=== PATIENT | female | born 1980 | race Caucasian/White ===

== ENCOUNTER 2022-09-17 16:14 | Emergency (ER) | payer OTHER, SELFPAY ==
[2022-09-17 16:15] VITALS: BP 116/88; PULSE 91; RESP 16; TEMP 36.9; O2SAT 97
--- NOTE | 2022-09-17 16:23 | ED.GENADULT ---
HPI - General Adult General Chief complaint: Abdominal Pain Stated complaint: abd pain Time Seen by Provider: 09/17/22 16:22 Source: patient Mode of arrival: ambulatory Limitations: no limitations History of Present Illness HPI narrative: 42-year-old white female who has had low dual back pain for the past week radiating down her right leg and around her sides worse when she bends over or moves or twists 07/15. She has taken ibuprofen 2 tablets 2 or 3 times a day with not a lot of relief. She is seen in the clinic and had some lower abdominal squeezing and was sent for CT scan at the hospital which showed possible thickening the small bowel wall suggest any inflammation or infection and no other abnormalities. Her urinalysis CBC and chemistry tests were unremarkable. She was discharged with Cipro to take twice a day for 7 days for possible intestinal infection. She also had some paresthesias of her lower abdomen and thighs without any rash for the past few days. She says it feels like a sunburn but there is no sunburn there. He has had no nausea vomiting or diarrhea or change in her bowel habits no fever cough runny nose sore throat problems walking talking seeing or hearing rash or itching bleeding or bruising swelling lumps or bumps. Ten days ago she had a small spot on her right leg that burned and then it was gone. She has no history of previous low back pain or no injury she knows of. She has not had any numbness or tingling weakness loss of bowel or bladder function. Denies any other complaints. 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 White patient no apparent distress.? Head normocephalic, atraumatic.? Eyes conjunctiva pink sclera nonicteric.? Extraocular movements are intact.? Ears externally normal.? Oropharynx is clear with moist mucous membranes without exudates.? Neck is supple nontender no lymphadenopathy.? Back: Mild low back paralumbar tenderness.? Patient has little discomfort when she moves around and tries to sit up exam table. Negative straight leg raise bilaterally Lungs are clear.? Heart is regular rate and rhythm without murmurs gallops or rubs.? Chest wall is nontender.? Abdomen is soft and nontender no hepatosplenomegaly or masses no CVA tenderness no abdominal bruits.? Extremities no cyanosis clubbing or edema.? Skin is warm and dry without rashes or lesions.? when I run my him lightly over lower abdomen she says it feels funny does not feel normal and there is no rash or irregularity in skin temperature or other abnormality Neurological patient is alert and oriented x4. deep tendon reflexes are +2 for lower extremities And sensations normal in her lower extremities.? Motor and sensory grossly intact.? Gait is normal. Medical Decision Making MDM Narrative Medical decision making narrative: Patient is placed in room 3 history and physicals was obtained from her ED visit [address] scan results were obtained. this thorough workup was reviewed with the patient in detail. CT scan only showed mild thickening or small bowel area suggesting possible inflammation her enteritis and no other abnormalities were seen. Her urinalysis and other labs were normal. Independent Historian: ? patient Differential Dx includes but not limited to: enteritis colitis urinary tract infection musculoskeletal pain Medications: Meds reviewed ? Medications daina
--- NOTE | 2022-09-17 16:40 | PC.NURSE ---
[facility] contacted and request made for pt er records from 09/15/22. [facility]
[2022-09-17 17:43] VITALS: TEMP 36.6
[2022-09-17 17:45] VITALS: BP 116/89; PULSE 85; RESP 14; O2SAT 97
== END 2022-09-17 17:48 | disposition home or self-care (01) ==
PROVIDERS: Emergency Provider Emergency Medicine
DX: R20.2 Paresthesia of skin (principal); S39.012A Strain of muscle, fascia and tendon of lower back, initial encounter; Z79.1 Long term (current) use of non-steroidal anti-inflammatories (NSAID); Z79.2 Long term (current) use of antibiotics; X58.XXXA Exposure to other specified factors, initial encounter
CPT/HCPCS: 99281

== ENCOUNTER 2023-03-01 12:16 | Outpatient (CLI) | payer OTHER, SELFPAY ==
[2023-03-01 13:03] LABS: Hematocrit 41.8 % (37.0-47.0); Mean Corpuscular HGB Conc 33.5 g/dl (32-36); Mean Corpuscular Hemoglobin 30.8 pg (26-34); Mean Corpuscular Volume 92.1 fl (80-100); Mean Platelet Volume 10.6 fl (7.4-10.4); Platelet Count Result 216 k/mm3 (150-375); Red Blood Count 4.54 M/mm3 (4.2-5.4); Red Cell Distribution Width 12.8 % (11.5-14.5); White Blood Count 4.8 K/mm3 (4.5-10.0)
== END 2023-03-01 12:17 | disposition home or self-care (01) ==
PROVIDERS: Visit Provider Student in an Organized Health Care Education/Training Program
DX: D25.9 Leiomyoma of uterus, unspecified (principal)
CPT/HCPCS: 36415; 85027; 86850; 86900; 86901

== ENCOUNTER 2023-03-08 01:19 | Day surgery (SDC) | payer OTHER, SELFPAY ==
[2023-02-26 09:11] VITALS: BMI 31.9
--- NOTE | 2023-02-26 09:15 | PC.NURSE ---
Report to the Outpatient Waiting Room, entrance under the green pavilion located off [facility], at time 10:00 on date 03/08/23. Planned Procedure Time: 12:00. Time changes happen often and if your time is changed the preop area will call you the afternoon before. - You and your visitor will be asked to self-screen and do not enter if you have any COVID symptoms. - A mask is optional within the hospital at this time. Patients may have clear liquids (water, carbonated beverages, clear teas, apple juice) until 3 hours prior to surgery (9:00) with a maximum of 20 ounces. - No food from midnight until time of surgery Take the following medications with a SIP of water the morning of surgery: SERTRALINE DO NOT STOP ANY OF YOUR OTHER PRESCRIPTION MEDICATIONS PRIOR TO SURGERY ?EXCEPT THE FOLLOWING Medications to discontinue per physician: N/A Date to take last dose: N/A Please no make-up, nail greenlandic, hairspray, perfume, deodorant, or body powder the day of surgery. No jewelry (including any body piercings) or valuables the day of surgery, leave them at home. Please take a shower or bath the night before, or the morning of, surgery with an antibacterial soap. Wear comfortable, loose fitting clothing. - Jewelry must be removed prior to entering the operating room. Rings and piercings that are not removed may be cut off. - The hospital will not accept responsibility for valuables. - Please leave all valuables, including medications, at home the day of surgery. If you are going home after surgery, a licensed cdl b driver must drive you home. - NO public transportation without another adult if you receive anesthesia. - We recommend that an adult stay with you for 24 hours following discharge. - We also recommend that you do not drive, make important decision, drink alcoholic beverages, or take any drugs that were not prescribed by your health care provider for at least 24 hours after your discharge time. Follow any additional instructions given to you from your surgeon. If you or anyone in your household have experienced Covid symptoms in the past week, please notify your surgeon or the nurse liaison at the phone number below for possible testing. Telephone instructions given to PT - SHEILA ESTRADA and asked if any additional questions and then verbalized understanding. Patient advised to call surgeon office or pre surgery nurse liaison [phone] if any additional questions.
--- NOTE | 2023-03-07 13:49 | PM.IMHP ---
H&P: HPI History of Present Illness Date/Time: 03/07/23 13:49 Chief Complaint: uterine fibroid abnormal uterine bleeding pelvic pain Narrative: ?42-year-old female who presents for hysterectomy for pelvic pain, AUB, uterine fibroid.? Patient reports a long history of pelvic pain.? Patient states she has seen several gynecologists regarding her pain.? Patient had CT scan done in September.? Patient has been treated for suspected gastritis without improvement symptoms.? Patient has tried hormonal contraception and currently has Nexplanon in place.? Patient continues to have bothersome pelvic pain and breakthrough bleeding.? CT scan and follow-up pelvic ultrasound showed uterine fibroid.? Patient is requesting surgical management via hysterectomy. Review of Systems Cardiovascular: Cardiovascular: Denies chest pain, Denies leg edema, Denies palpitations, Denies dyspnea and Denies dyspnea on exertion Respiratory: Respiratory: Denies cough, Denies dyspnea and Denies dyspnea on exertion Gastrointestinal: Gastrointestinal: Denies abdominal pain, Denies constipation, Denies diarrhea, Denies nausea and Denies vomiting Genitourinary: Genitourinary: Denies hematuria, Denies urinary frequency, Denies dysuria, Denies pelvic pain, Denies urinary incontinence and Denies vaginal discharge Neurologic: Reports system reviewed and no additional complaints, except as documented Psychiatric: Psychiatric: Reports no additional psychiatric complaints Endocrine: Endocrine: Denies palpitations PMFSH Surgical History Surgical History H/O LEEP History of delivery History of ovarian cystectomy Family History Family History Mother Diabetes mellitus Grandparent Breast cancer Social History Social History Smoking status: Current some day smoker Tobacco type: cigarettes Alcohol intake: never Substance use: never Substance use type: does not use Lack of Transportation: No Lack of Food: Never True Current Housing: I Have Housing Concerned About Future Housing: No Difficulty Paying Gas/Electric Bills: No Difficulty Paying for Meds: No Currently Unemployed: No Education: High School Diploma/GED Difficulty w/ Childcare or Family Care: No Living arrangements: with family Occupation/Education: occupation Additional occupation/education comments: works for [employer] Gender identity (if verbalized by the patient): Female Spiritual care concerns: No Meds Home Medications and Allergies Home Medications Medication Instructions Recorded Confirmed Type sertraline 100 mg tablet 100 mg PO DAILY 09/17/22 02/26/23 History Allergies Allergy/AdvReac Type Severity Reaction Status Date / Time amoxicillin [From Augmentin] Allergy Rash Verified 02/26/23 09:11 clavulanic acid Allergy Rash Verified 02/26/23 09:11 [From Augmentin] Exam Const: General: no acute distress Eyes: EOM: EOMs intact bilaterally Neck: Neck: supple Thyroid: thyroid normal Chest: Breast/axilla inspection: normal inspection of the breasts Breast/axilla palpation: normal palpation of the breasts, normal palpation of the axillae and no axillary lymphadenopathy Resp: Effort & Inspection: normal respiratory effort Auscultation: clear to auscultation bilaterally Cardio: Rate: regular rate Rhythm: regular rhythm GI: Inspection: non-distended GI Palp: Yes Soft to palpation, No Tenderness to palpation present (GI) and No Guarding due to palpation present (GI) Auscultation: normal bowel sounds : General: No bladder normal to palpation External Female Exam: normal external appearance Speculum Exam - Vagina: normal vaginal discharge and No vaginal bleeding Speculum Exam - Cervix: nontender Bimanual exam- vagina & uterus: No bladder normal to palpation an
[2023-03-08] VITALS (9 sets, daily range): BP systolic 97–134; BP diastolic 62–80; PULSE 63–99; RESP 15–20; TEMP 36.1–37; O2SAT 96–100
[2023-03-08] MEDS: ACETAMINOPHEN 500 MG TABLET 1000 MG PO (09:56)
[2023-03-08] MEDS: KETOROLAC 15 MG/ML VIAL (*BKC) IV PUSH (10:25)
[2023-03-08] MEDS: LACTATED RINGERS 1,000 ML 30 ML IV CONT ×2 (10:25→13:34)
--- NOTE | 2023-03-08 11:20 | WPDHPUPDATE1 ---
History and Physical Update Update Date/Time: 03/08/23 11:20 History and Physical has been reviewed, including an updated exam of the patient. There are NO changes in the patient's condition. Risks, benefits, and alternatives have been discussed and questions answered. Patient agrees to proceed with procedure.
--- NOTE | 2023-03-08 11:24 | P.PNAN_ITS ---
Anes - Initial Pre Proc Eval Procedure: Operation Date: 03/08/23 12:00 Proposed Procedures p Robotic Assisted Total Laparoscopic Hysterectomy with Bilateral Salpingectomy - Shemar Mallory MD Date/Time: 03/08/23 11:24 Surgeon: Shemar Mallory MD Pre Op Diagnosis: Uterine Fibroid Patient Data Age: 42 Gender: F Height: 1.68 m Weight: 89.7 kg Last Vital Signs Temp 98.6 F 03/08/23 10:19 Pulse 87 03/08/23 10:19 Resp 16 03/08/23 10:19 BP 129/80 03/08/23 10:19 Pulse Ox 99 03/08/23 10:19 O2 Del Method Room Air 03/08/23 10:19 Allergies Allergy/AdvReac Type Severity Reaction Status Date / Time amoxicillin [From Augmentin] Allergy Rash Verified 03/08/23 09:53 clavulanic acid Allergy Rash Verified 02/26/23 09:11 [From Augmentin] Home Medications Medication Instructions Recorded Confirmed Type sertraline 100 mg tablet 100 mg PO DAILY 09/17/22 03/08/23 History Patient hx anesthesia problems: none Family hx anesthesia problems: none Results Review: All pre-operative results and documents have been reviewed as part of the pre- operative evaluation. [facility] Surgical History Surgical History H/O LEEP History of delivery History of ovarian cystectomy Family History Family History Mother Diabetes mellitus Grandparent Breast cancer Social History Social History Smoking status: Current some day smoker Tobacco type: cigarettes Alcohol intake: never Substance use: never Substance use type: does not use Lack of Transportation: No Lack of Food: Never True Current Housing: I Have Housing Concerned About Future Housing: No Difficulty Paying Gas/Electric Bills: No Difficulty Paying for Meds: No Currently Unemployed: No Education: High School Diploma/GED Difficulty w/ Childcare or Family Care: No Living arrangements: with family Occupation/Education: occupation Additional occupation/education comments: works for [employer] Gender identity (if verbalized by the patient): Female Spiritual care concerns: No Anes - Eval Final PreProcedure Day of Procedure 03/08/23 11:24 Patient weight: obese Heart: regular rate and rhythm Lungs: clear to auscultation Airway: Mallampati scale class II Neurological: alert and oriented Last oral intake: >/= 8 hours ASA classification: II Emergent: no Anesthetic plan: proceed Anesthesia type and monitoring: general ETT and standard monitoring Results Review: All pre-operative results and documents have been reviewed as part of the pre- operative evaluation. Informed Consent: The patient's anesthetic plan and its attendant risks and benefits were discussed with the patient/family/POA. Questions were solicited and answers provided to the satisfaction of the patient/family/POA.
[2023-03-08] MEDS: ceFAZolin 2 GM/D5W 50 ML 2 GM/50 ML BAG IVPB (12:04)
[2023-03-08] MEDS: LIDO 1%/EPINEPHRINE 1:100,000 50 ML VIAL 24 ML INFILTRATE (12:53)
--- NOTE | 2023-03-08 13:12 | W.PM.PROC2 ---
Procedure Note - Detailed Date of Procedure 03/08/23 Pre-op Diagnosis Uterine Fibroid pelvic pain abnormal uterine bleeding Post-op Diagnosis Same Procedure Performed robotic assisted total laparoscopic hysterectomy and bilateral salpingectomy Surgeon Shemar Mallory MD Anesthesia General Findings enlarged uterus, subserosal fibroid, normal appearing fallopian tubes and ovaries bilaterally Description of Procedure After the patient was appropriately consented she was taken to the operating room where she was transferred to the table in a dorsal supine position. General anesthesia was then induced with endotracheal intubation. The patient was transferred to a dorsal lithotomy position using adjustable yellow-fin stirrups. Her position was adjusted for appropriate support of her lower back and lower extremities. The patient was prepped and draped. A transurethral streeter catheter was place. The cervix was sequentially dilated and a EDMOND uterine manipulator placed in typical fashion about a 3.5 cm GORAN ring. Gloves were changed. After confirmation of a functioning orogastric tube, lidocaine was injected at Zhou's point in the LUQ and a 8 mm incision was made. A 5mm Optiview trocar was then inserted into the abdominal cavity under direct visualization and done so without complication. The abdomen was then insufflated with approximately 2-3L of CO2 establishing a pneumoperitoneum and the patient was placed in Trendelenburg position. Just above the umbilicus in the midline, a 8mm incision made after injection of lidocaine and a 8mm bladeless trocar advanced into the abdominal cavity under direct visualization without incident. We subsequently placed two robotic ports in a similar fashion, one in the left mid-quadrant and one in the right, 10cm lateral to the midline port. The robot was then docked. Attention was turned to the left pelvis. The left fallopian tube was removed by sequentially dividing the mesosalpinx towards the uterus sparing the ovary. The utero-ovarian ligament was desiccated and transected, as was the round ligament. The posterior peritoneal leaf was taken down to the GORAN ring. The anterior leaf was developed as well as the start of the bladder flap. The left uterine artery was then skeletonized and desiccated and transected just above the level of the GORAN ring. Attention was turned to the right pelvis. The right fallopian tube was removed by sequentially dividing the mesosalpinx towards the uterus sparing the ovary. The utero-ovarian ligament was desiccated and transected, as was the round ligament. The posterior peritoneal leaf was taken down to the GORAN ring. The anterior leaf was developed as well as the start of the bladder flap. The right uterine artery was then skeletonized and desiccated and transected just above the level of the GORAN ring. The bladder was then further dissected inferiorly over the level of the GORAN ring. A circumferential colpotomy was made using monopolar current. The uterus, cervix, bilateral tubes were then delivered transvaginally. I then placed a single figure of eight suture of 0-vicryl in the left corner of the vaginal cuff. I then re-approximated the colpotomy with a running #1 PDO Quill suture in 2 layers. Following this dissection, the abdomen and pelvis were copiously irrigated and all surgical sites found to be hemostatic. Skin sites were reapproximated with 4-0 Vicryl in a subcuticular fashion. Steri-Strips were placed. The patient tolerated the procedure well. Sponge, needle and instrument counts were correct x 2 and the patient was taken to recovery in stable condition. Ancef wase given for antimicrobial prophylaxis. The patient had SCD's on for VTE prophylaxis during the entire procedure. Estimated Blood Loss 20 Drains No Packing No Pathology Yes (cervix, uterus, bilateral fallopian tubes) Complications No immediate complications Condition Stable Disposition PACU [facility] Billing Surgery - Charge
[2023-03-08] MEDS: fentaNYL CITRATE INJ (*CRX) 100 MCG/2 ML VIAL 25 MCG IV PUSH ×2 (14:02→14:06)
[2023-03-08] MEDS: oxyCODONE HCL (*CRX) 5 MG TAB IR PO (15:03)
== END 2023-03-08 15:50 | disposition home or self-care (01) ==
PROVIDERS: Visit Provider Student in an Organized Health Care Education/Training Program
PROC: (CPT 58571; principal; 2023-03-08 12:00)
DX: N93.9 Abnormal uterine and vaginal bleeding, unspecified (principal); D25.1 Intramural leiomyoma of uterus; F17.210 Nicotine dependence, cigarettes, uncomplicated; E66.9 Obesity, unspecified; Z68.31 Body mass index [BMI] 31.0-31.9, adult; Z98.890 Other specified postprocedural states; Z80.3 Family history of malignant neoplasm of breast
CPT/HCPCS: 58571; S2900; 88307; A9270; J0690; J1100; J1170; J1596; J1885; J2250; J2405; J2704; J3010; J7120

== ENCOUNTER 2023-04-25 10:26 | Outpatient (CLI) | payer OTHER, SELFPAY | END 2023-04-25 10:27 | disposition home or self-care (01) | LOC: ANHBWCAUD 10:28 | PROVIDERS: Visit Provider Otolaryngology | DX: H93.8X1 Other specified disorders of right ear (principal); H69.91 Unspecified Eustachian tube disorder, right ear; H90.0 Conductive hearing loss, bilateral | CPT/HCPCS: 92557; 92567 ==

== ENCOUNTER 2023-08-16 07:39 | Outpatient (CLI) | payer OTHER, SELFPAY | END 2023-08-16 07:40 | disposition home or self-care (01) | LOC: ANHAUDIO 07:40 | PROVIDERS: Visit Provider Otolaryngology | DX: H90.11 Conductive hearing loss, unilateral, right ear, with unrestricted hearing on the contralateral side (principal); H90.72 Mixed conductive and sensorineural hearing loss, unilateral, left ear, with unrestricted hearing on the contralateral side | CPT/HCPCS: 92557; 92567 ==

== ENCOUNTER 2024-07-05 18:42 | Emergency (ER) | payer OTHER, SELFPAY ==
--- NOTE | ~2024-07-05 | CT_ITS ---
CT cervical spine wo con Ordering provider: Bud Quijano MD History: . NECK PAIN AND PRESSURE. . Comparison: None. Technique: CT of the cervical spine was performed without contrast. Sagittal and coronal reformatted images were also obtained and reviewed. Automated exposure control and iterative reconstruction mason hnique were employed. The dose-length product was 323.02 mGy-cm. FINDINGS: VERTEBRAE: No subluxation or acute fracture. The occipital condyles are intact. Reversal of lordosis. DISC SPACES: Normal. Narrowing of the left intervertebral foramen. PARASPINOUS SOFT TISSUES: Normal. Bilateral mastoid air cells effusion. IMPRESSION: No acute osseous abnormality cervical spine. Reviewed, dictated and finalized at location A.
--- NOTE | ~2024-07-05 | CT_ITS ---
CT brain wo con Ordering provider: Bud Quijano MD History: 43 years Female with . brain SURGERY IN OCT. PAIN/PRESSURE HEAD AND NECK. . Comparison: None. Technique: CT of the head without contrast. Radiation reduction technique utilized.The dose-length pr oduct was 605.33 mGy-cm. FINDINGS: BRAIN PARENCHYMA AND CSF SPACES: No midline shift, mass effect or hemorrhage. The brain parenchyma a nd CSF spaces are otherwise normal. VISUALIZED PARANASAL SINUSES: Right maxillary sinus disease. MASTOIDS: Well aerated. BONES: Postoperative changes in the right frontoparietal bone otherwise, The bones appear intact. SOFT TISSUES: Visualized nasopharynx is normal. Superficial soft tissues are normal. IMPRESSION: No acute intracranial findings. Reviewed, dictated and finalized at location A.
[2024-07-05 18:45] VITALS: BP 124/91; PULSE 101; RESP 18; TEMP 36.2; O2SAT 99
--- OUTSIDE RECORDS SUMMARY | 2024-07-05 18:51 | XMS_ITS | Clinical Summary ---
Author Organization [facility] Medicine Address [address] [place] [id number] Care Team Providers Care Instructional Systems Specialist Name Role Phone Becky Chavis NP Primary Care Provider [phone] Allergies Active Allergy Reactions Criticality Noted Date Comments Amoxicillin-Pot Clavulanate Itching,Rash Medium 2023 Medications buPROPion XL (WELLBUTRIN XL) 150 mg 24 hr tablet Take 1 tablet (150 mg total) by mouth daily 07/07/2023 Active cyclobenzaprine (FLEXERIL) 10 mg tablet Take 1 tablet (10 mg total) by mouth 3 (three) times a day Active sertraline (ZOLOFT) 100 mg tablet Take 1 tablet (100 mg total) by mouth daily 07/07/2023 Active Active Problems Problem Noted Date Diagnosed Date Visit for gynecologic examination 04/24/2024 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 Mixed hearing loss, bilateral 04/24/2024 Encounters Date Type Department Care Team Description 04/24/2024 11:42 AM CDT - 04/24/2024 11:59 PM CDT Hospital Encounter [facility] [address] [place] [id number] Discharge Disposition: Discharge to home or self care 04/24/2024 11:41 AM CDT - 04/24/2024 11:59 PM CDT Hospital Encounter [facility] [address] [place] [id number] Discharge Disposition: Discharge to home or self care 04/24/2024 11:40 AM CDT - 04/24/2024 11:59 PM CDT Hospital Encounter [facility] [address] [place] [id number] Discharge Disposition: Discharge to home or self care 04/24/2024 11:20 AM CDT Office Visit [facility] Otol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 Gender Identity Not on file Sexual Orientation Not on file Obstetrics History Plan of Treatment Health Maintenance Due Date Last Done Comments Breast Cancer Screening-Mammogram 1981 Depression Screening 1981 Hepatitis C Screening 1981 Varicella Vaccines (1 of 2 - 13+ 2-dose series) 1994 Hepatitis B Screening 09/10/1999 Regular Well Visit/Exam 18-64 09/10/1999 Pneumococcal vaccine <65 (1 of 2 - PCV) 2000 Cervical Cancer Screening 12/05/2023 12/04/2022 Influenza Vaccine (Season Ended) 2024 DTaP/Tdap/Td Vaccine (6 - Td or Tdap) 05/23/2026 05/23/2016, 09/06/1995, 09/10/1986, Additional history exists HPV Vaccines Aged Out No longer eligi ble based on patient's age to complete this topic Procedures Procedure Name Priority Date/Time Associated Diagnosis Comments NEURO CT OUTSIDE REFERENCE Routine 04/24/2024 11:[address] OUTSIDE REFERENCE Routine 04/24/2024 11:[address] OUTSIDE REFERENCE Routine 04/24/2024 11:40 AM CDT from Last 3 Months Results * Neuro CT Outside Reference (04/24/2024 11:42 AM CDT) Impressions [facility] - 04/24/2024 11:42 AM CDT These images are for Reference purposes only and have not been reviewed by [facility]. There will be no report generated by a [facility] Radiologist. Narrative [email or web address] - 04/24/2024 11:42 AM CDT EXAMINATION: Images For Reference Purposes Only Gia Moffett MD IMG CT PROCEDURES Shanae l Result Performing Organization Address [facility] Co de Phone Number [email or web address] * Neuro CT Outside Reference (04/24/2024 11:41 AM CDT) Impressions [email or web address] - 04/24/2024 11:41 AM CDT These images are for Reference purposes only and have not been reviewed by [facility]. There will be no report generated by a [facility] Radiologist. Narrative [email or web address] - 04/24/2024 11:41 AM CDT EXAMINATION: Images For Reference Purposes Only Gia Moffett MD IMG CT PROCEDURES Shanae l Result Performing Organization Address [facility] de Phone Number [email or web address] * Neuro CT Outside Reference (04/24/2024 11:40 AM CDT) Impressions [email or web address] - 04/24/2024 11:40 AM CDT These images are for Reference purposes only and have not been reviewed by [facility]. There will be no report generated by a [facility] Radiologist. Narrative [email or web address] - 04/24/2024 11:40 AM CDT EXAMINATION: Images For Reference Purposes Only us Gia Moffett MD IMG CT PROCEDURES Shanae l Result Performing Organization Address [facility] Co de Phone Number [email or web address] from Last 3 Months Insurance [facility] Care Teams Instructional Systems Specialist Relationship Specialty Start [place] [address] [place] [address] PCP - General Family Medicine 04/21/24
--- OUTSIDE RECORDS SUMMARY | 2024-07-05 18:51 | XMS_ITS | Referral Summary ---
Author Organization [facility] Address [address] [place] [id number] Care Team Providers Care Hydramatic Specialist Name Role Phone Becky Chavis NP Primary Care Provider [phone] Encounters Date Type Department Care Team Description 04/24/2024 11:42 AM CDT - 04/24/2024 11:59 PM CDT Hospital Encounter [facility] ([facility]) [address] [place] [address] Discharge Disposition: Discharge to home or self care 04/24/2024 11:41 AM CDT - 04/24/2024 11:59 PM CDT Hospital Encounter [facility] ([facility]) [address] [place] [address] Discharge Disposition: Discharge to home or self care 04/24/2024 11:40 AM CDT - 04/24/2024 11:59 PM CDT Hospital Encounter [facility] ([facility]) [address] [place] [address] Discharge Disposition: Discharge to home or self care 04/24/2024 11:20 AM CDT Office Visit [facility] Otolaryngology 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 Gender Identity Not on file Sexual Orientation Not on file Plan of Treatment Not on file Procedures Procedure Name Priority Date/Time Associated Diagnosis Comments NEURO CT OUTSIDE REFERENCE Routine 04/24/2024 11:[address] OUTSIDE REFERENCE Routine 04/24/2024 11:[address] OUTSIDE REFERENCE Routine 04/24/2024 11:40 AM CDT from Last 3 Months Results * Neuro CT Outside Reference (04/24/2024 11:42 AM CDT) Impressions [facility] - 04/24/2024 11:42 AM CDT These images are for Reference purposes only and have not been reviewed by [facility] Radiology. There will be no report generated by a [facility] Radiologist. Narrative [facility] - 04/24/2024 11:42 AM CDT EXAMINATION: Images For Reference Purposes Only us Gia Moffett MD IMG CT PROCEDURES Shanae l Result [facility] * Neuro CT Outside Reference (04/24/2024 11:41 AM CDT) Impressions [facility] - 04/24/2024 11:41 AM CDT These images are for Reference purposes only and have not been reviewed by [facility] Radiology. There will be no report generated by a [facility] Radiologist. Narrative [facility] - 04/24/2024 11:41 AM CDT EXAMINATION: Images For Reference Purposes Only us Gia Moffett MD IMG CT PROCEDURES Shanae l Result Performing Organization Address [facility] Co de Phone Number [facility] * Neuro CT Outside Reference (04/24/2024 11:40 AM CDT) Impressions [facility] - 04/24/2024 11:40 AM CDT These images are for Reference purposes only and have not been reviewed by [facility] Radiology. There will be no report generated by a [facility] Radiologist. Narrative [facility] - 04/24/2024 11:40 AM CDT EXAMINATION: Images For Reference Purposes Only us Gia Moffett MD IMG CT PROCEDURES Shanae l Result Performing Organization Address [facility] de Phone Number [facility] from Last 3 Months Insurance [employer] Care Teams Hydramatic Specialist Relationship Specialty Start Date End Date Becky Chavis, FELICITY [address] [place] [address] PCP - General Family Medicine 04/21/24
[2024-07-05 19:32] VITALS: BP 143/97; PULSE 106; RESP 16; TEMP 36.4; O2SAT 98
--- OUTSIDE RECORDS SUMMARY | 2024-07-05 19:36 | XMS_ITS | Referral Summary ---
Author Organization [facility] Address [address] [place] [id number] Care Team Providers Care Needle Grinder Name Role Phone Becky Chavis NP Primary Care Provider [phone] Encounters Date Type Department Care Team Description 04/24/2024 11:42 AM CDT - 04/24/2024 11:59 PM CDT Hospital Encounter [facility] ([facility]) [address] [place] [address] Discharge Disposition: Discharge to home or self care 04/24/2024 11:41 AM CDT - 04/24/2024 11:59 PM CDT Hospital Encounter [facility] ([facility]) [address] [place] [address] Discharge Disposition: Discharge to home or self care 04/24/2024 11:40 AM CDT - 04/24/2024 11:59 PM CDT Hospital Encounter [facility] ([facility]) [address] [place] [address] Discharge Disposition: Discharge to home or self care 04/24/2024 11:20 AM CDT Office Visit [facility] Otol[facility]ology 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 There will be no report generated by a [facility] Radiologist. Narrative [facility] - 04/24/2024 11:42 AM CDT EXAMINATION: Images For Reference Purposes Only us Gia Moffett MD IMG CT PROCEDURES Shanae l Result [facility] * Neuro CT Outside Reference (04/24/2024 11:41 AM CDT) Impressions [facility] - 04/24/2024 11:41 AM CDT These images are for Reference purposes only and have not been reviewed by [facility] Radiology. There will be no report generated by a [facility] Radiologist. Narrative [facility] - 04/24/2024 11:41 AM CDT EXAMINATION: Images For Reference Purposes Only us Gia Moffett MD IMG CT PROCEDURES Shanae l Result Performing Organization Address [facility] Co de Phone Number [facility] * Neuro CT Outside Reference (04/24/2024 11:40 AM CDT) Impressions [facility] - 04/24/2024 11:40 AM CDT These images are for Reference purposes only and have not been reviewed by [facility]iology. There will be no report generated by a [facility] Radiologist. Narrative [facility] - 04/24/2024 11:40 AM CDT EXAMINATION: Images For Reference Purposes Only us Gia Moffett MD IMG CT PROCEDURES Shanae l Result Performing Organization Address [facility] de Phone Number [facility] from Last 3 Months Insurance [facility] Care Teams Needle Grinder Relationship Specialty Start Date End Date Becky Chavis, FELICITY [address] [place] [address] PCP - General Family Medicine 04/21/24
--- OUTSIDE RECORDS SUMMARY | 2024-07-05 19:36 | XMS_ITS | Clinical Summary ---
Author Organization [facility] Address [address] [place] [address] Care Team Providers Care Water Pump Servicer Name Role Phone Becky Chavis NP Primary Care Provider [phone] Allergies Active Allergy Reactions Criticality Noted Date [...] - 04/24/2024 11:59 PM CDT Hospital Encounter [facility] ([facility]) [address] [place] [address] Discharge Disposition: Discharge to home or self care 04/24/2024 11:41 AM CDT - 04/24/2024 11:59 PM CDT Hospital Encounter [facility]) [address] [place] [address] Discharge Disposition: Discharge to home or self care 04/24/2024 11:40 AM CDT - 04/24/2024 11:59 PM CDT Hospital Encounter [facility]) [address] [place] [address] Discharge Disposition: Discharge to home or self care 04/24/2024 11:20 AM CDT Office Visit [facility] Otol[facility]ology [facility] 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 There will be no report generated by a [facility] Radiologist. Narrative [facility] - 04/24/2024 11:42 AM CDT EXAMINATION: Images For Reference Purposes Only Gia Moffett MD IMG CT PROCEDURES Shanae l Result Performing Organization Address [facility] Co de Phone Number [facility] * Neuro CT Outside Reference (04/24/2024 11:41 AM CDT) Impressions [facility] - 04/24/2024 11:41 AM CDT These images are for Reference purposes only and have not been reviewed by [facility] Radiology. There will be no report generated by a [facility] Radiologist. Narrative [facility] - 04/24/2024 11:41 AM CDT EXAMINATION: Images For Reference Purposes Only Gia Moffett MD IMG CT PROCEDURES Shanae l Result Performing Organization Address [facility] de Phone Number [facility] * Neuro CT Outside Reference (04/24/2024 11:40 AM CDT) Impressions [facility] - 04/24/2024 11:40 AM CDT These images are for Reference purposes only and have not been reviewed by [facility] Radiology. There will be no report generated by a [facility] Radiologist. Narrative [facility] - 04/24/2024 11:40 AM CDT EXAMINATION: Images For Reference Purposes Only us Gia Moffett MD IMG CT PROCEDURES Shanae l Result Performing Organization Address [facility] Co de Phone Number [facility] from Last 3 Months Insurance [facility] Care Teams Water Pump Servicer Relationship Specialty [place] [address] [place] [address] PCP - General Family Medicine 04/21/24
--- NOTE | 2024-07-05 20:10 | PC.NURSE ---
DR PEREZ AT THE BEDSIDE
--- NOTE | 2024-07-05 20:29 | PC.NURSE ---
RETURNED FROM CT. AMBULATED TO STRETCHER. WITHOUT DIFFICULTY. MOTHER AT HER SIDE.
--- NOTE | 2024-07-05 21:27 | PC.NURSE ---
CALLED MAURICE WITH LAB. SHE WAS INFORMED OF BLOOD WORK ORDERS FROM 1999
--- NOTE | 2024-07-05 21:33 | PC.NURSE ---
LAB AT THE BEDSIDE
[2024-07-05 21:42] LABS: Basophils Absolute Auto 0.03 K/mm3 (0.00-0.10); Basophils Percent Auto 0.6 % (0.0-1.0); Eosinophils Absolute Auto 0.06 K/mm3 (0.02-0.50); Eosinophils Percent Auto 1.1 % (1.0-6.0); Hematocrit 41.1 % (35.0-49.0); Hemoglobin 13.6 g/dL (12.0-15.0); Immature Granulocyte Absolute 0.01 K/mm3 (0.00-0.00); Immature Granulocyte Percent A 0.2 % (0.0-0.0); Lymphocytes Absolute Auto 1.63 K/mm3 (1.10-4.50); Lymphocytes Percent Auto 30.4 % (18.0-42.0); Mean Corpuscular HGB Conc 33.1 g/dL (32-36); Mean Corpuscular Hemoglobin 29.8 pg (27.0-31.0); Mean Corpuscular Volume 90.1 fL (78.0-102.0); Mean Platelet Volume 10.2 fl (9.2-11.8); Monocytes Absolute Auto 0.32 K/mm3 (0.10-0.90); Neutrophils Absolute Auto 3.32 K/mm3 (1.70-7.20); Neutrophils Percent Auto 61.7 % (50.0-70.0); Platelet Count Result 244 K/mm3 (150-420); Red Blood Count 4.56 M/mm3 (4.20-5.40); Red Cell Distribution Width 13.3 % (11.6-14.4); White Blood Count 5.4 K/mm3 (4.8-10.8)
[2024-07-05 21:54] LABS: Alanine Aminotransferase 101 U/L (6-35); Albumin Level 4.4 g/dL (3.5-5.1); Alkaline Phosphatase 105 U/L (38-126); Anion Gap 4 mmol/L (4-12); Aspartate Amino Transferase 79 U/L (14-36); Bilirubin,Total 0.3 mg/dL (0.2-1.3); Blood Urea Nitrogen 12 mg/dL (7-17); Calcium 9.1 mg/dL (8.4-10.2); Carbon Dioxide 27 mmol/L (22-30); Chloride 106 mmol/L (98-107); Estimated CRCL calculation 112 ml/min; Estimated Glomerular Filt Rate > 60; Glucose 92 mg/dL (65-110); Osmolality Calculated 283 mOsm/kg (285-295); Potassium 4.1 mmol/L (3.4-5.0); Sodium 137 mmol/L (137-145); Total Protein 7.4 g/dL (6.3-8.2)
--- NOTE | 2024-07-05 22:00 | ED.NEUROSD ---
HPI - Neuro Symptoms/Deficit General Chief Complaint: Neuro Symptoms/Deficit Stated Complaint: headache; numbness Time Seen by Provider: 07/05/24 19:19 Source: patient Mode of arrival: ambulatory Limitations: no limitations History of Present Illness HPI Narrative: this is at 43-year-old female with no significant past medical history presents with some radiculopathy to her left and right arm with no headache no blurry vision no nausea vomiting no other neurological deficits. There is no fever chills no neck stiffness no chest pain or shortness of breath. Onset (ago): day(s) Related Data Home Medications ?Medication ?Instructions ?Recorded ?Confirmed ?Last Taken ?Type sertraline 100 mg tablet 100 mg PO DAILY 09/17/22 05/01/23 03/08/23 07:00 History Allergies Allergy/AdvReac Type Severity Reaction Status Date / Time amoxicillin (From Augmentin) Allergy Rash Verified 07/05/24 19:44 clavulanic acid (From Allergy Rash Verified 07/05/24 19:44 Augmentin) Review of Systems Review of Systems: All systems reviewed & are unremarkable except as noted in HPI and below PMFSH Surgical History Surgical History Hx of tonsillectomy H/O: hysterectomy w/ bilat salpingectomy History of ovarian cystectomy H/O LEEP History of delivery Family History Family History Mother Diabetes mellitus Grandparent Breast cancer Other Depression Cerebrovascular accident Grandparent Diabetes mellitus Social History Social History Smoking status: Current some day smoker Tobacco type: cigarettes Alcohol intake: never Substance use: never Substance use type: does not use Lack of Transportation: No Lack of Food: Never True Current Housing: I Have Housing Concerned About Future Housing: No Difficulty Paying Gas/Electric Bills: No Difficulty Paying for Meds: No Currently Unemployed: No Education: High School Diploma/GED Difficulty w/ Childcare or Family Care: No Living arrangements: with family Occupation/Education: occupation Additional occupation/education comments: works for [employer] Gender identity (if verbalized by the patient): Female Spiritual care concerns: No Exam Const: General: healthy appearing, no acute distress and alert Nutritional Appearance: well nourished Orientation/consciousness: patient oriented x3 Limitations: no limitations HENMT: Head: normal to inspection Eyes: Conjunctivae: conjunctivae normal Pupils: Equal, round and reactive pupils present EOM: EOMs intact bilaterally Neck: Neck: normal visual inspection Chest: Chest palpation & inspection: normal inspection of the chest Resp: Effort & Inspection: normal respiratory effort Auscultation: clear to auscultation bilaterally Cardio: Rate: regular rate Rhythm: regular rhythm GI: GI Palp: Yes Soft to palpation Auscultation: normal bowel sounds Skin: General skin exam: normal color Rashes: no rashes Wounds: no wounds Neuro: General: patient oriented x3, moves all extremities, no meningeal signs, no focal motor deficits and CN's II-XI intact bilaterally Course Course Emergency Course: CT scan of brain and cervical spine showed no acute abnormalities labs without any acute abnormalities advised patient to follow-up her primary care physician within the next 3 to 5 days. Vital Signs Vital signs: Vital Signs Temperature 36.2 C L 07/05/24 18:45 Pulse Rate 101 H 07/05/24 18:45 Respiratory Rate 18 07/05/24 18:45 Blood Pressure 124/91 H 07/05/24 18:45 Pulse Oximetry 99 07/05/24 18:45 Oxygen Delivery Room Air 07/05/24 18:45 Temperature 36.4 C 07/05/24 19:32 Pulse Rate 106 H 07/05/24 19:32 Respiratory Rate 16 07/05/24 19:32 Blood Pressure 143/97 H 07/05/24 19:32 Pulse Oximetry 98 07/05/24 19:32 Oxygen Delivery Room Air 07/05/24 19:32 MDM - Neuro Symptoms/Deficit Lab Data 07/05/24 21:38 07/05/24 21:38 Labs: Lab Results 07/05/24 Range/Units 21:38 WBC 5.4 (4.8-10.8) K/mm3 RBC 4.56 (4.20-5.40) M/mm3 Hgb 13.6 (12.0-15.0) g/dL Hct 41.1 (35.0-49.0) % MCV 90.1 (78.0-102.0) fL MCH 29.8 (27.0-31.0) pg MCHC 33.1 (32-36) g/dL RDW 13.3 (11.6-14.4) % Plt Count 244 (150-420) K/mm3 MPV 10.2 (9.2-11.8) fl Immature Gran % (Auto) 0.2 H (0.0-0.0) % Neut % (Auto) 61.7 (50.0-70.0) % Lymph % (Auto) 30.4 (18.0-42.0) % [place] % (Auto) 6.0 (2.0-11.0) % Eos % (Auto) 1.1 (1.0-6.0) % Baso % (Auto) 0.6 (0.0-1.0) % Lymph # (Auto) 1.63 (1.10-4.50) K/mm3 [place] # (Auto) 0.32 (0.10-0.90) K/mm3 Eos # (Auto) 0.06 (0.02-0.50) K/mm3 Baso # (Auto) 0.03 (0.00-0.10) K/mm3 Abs Immat Gran (auto) 0.01 H (0.00-0.00) K/mm3 Absolute Neuts (auto) 3.32 (1.70-7.20) K/mm3 Absolute Nucleated RBC 0.00 (0.00-0.00) K/mm3 Nucleated RBC % 0.0 (0-0.0) % Sodium 137 (137-145) mmol/L Potassium 4.1 (3.4-5.0) mmol/L Chloride 106 (98-107) mmol/L Carbon Dioxide 27 (22-30) mmol/L Anion Gap 4 (4-12) mmol/L BUN 12 (7-17) mg/dL Creatinine 0.64 L (0.7-1.0) mg/dL Estim Creat Clear Calc 112 ml/min Estimated GFR > 60 (59 - ) Glucose 92 (65-110) mg/dL Calculated Osmolality 283 L (285-295) mOsm/kg Calcium 9.1 (8.4-10.2) mg/dL Total Bilirubin 0.3 (0.2-1.3) mg/dL AST 79 H (14-36) U/L ALT 101 H (6-35) U/L Alkaline Phosphatase 105 (38-126) U/L Total Protein 7.4 (6.3-8.2) g/dL Albumin 4.4 (3.5-5.1) g/dL Critical Care Time Critical Care Time Critical Care Time: No Discharge Plan Discharge Clinical Impression: Cervical radiculopathy Patient Disposition: Home Condition: Stable Instructions: Antibiotic Form, Cervical Radiculopathy (ED) Additional Instructions: advised patient follow with primary within the next 3 to 5 days further evaluation Patient Language: Maldivian Prescriptions: No Action sertraline 100 mg tablet 100 mg PO DAILY Follow-up/Referrals: Palmira,Becky [Other] Time of Disposition: 22:03
[2024-07-05 22:14] VITALS: BP 141/97; PULSE 90; RESP 18; O2SAT 98
== END 2024-07-05 22:14 | disposition home or self-care (01) ==
PROVIDERS: Emergency Provider Emergency Medicine
DX: M54.12 Radiculopathy, cervical region (principal); F17.210 Nicotine dependence, cigarettes, uncomplicated
CPT/HCPCS: 36415; 70450; 72125; 80053; 85025; 99284